=== PATIENT | female | born 1960 | race Caucasian/White ===

== ENCOUNTER 2017-10-28 06:28 | Day surgery (SDC) | payer OTHER ==
[~2017-10-28] VITALS: Ht 111.8 cm; Wt 64.8 kg
[~2017-10-28 06:28] MED LIST: BIOTIN10000 MC1 PO; CHOLESTYRAMINE L4 GM PO; COUMADIN3 MG PO; CRESTOR40 MG PO; DEPAKOTE500 MG PO; DILANTIN100 MG PO; ERGOCALCIF50000 UNIT PO; FERROUS SULFAT324 M1 PO; FOLIC ACID0.8 MG PO; IMDUR60 MG PO; INSULIN PUMP SC; LASIX40 MG PO; LO-DOSE ASPIRIN81 M1 PO; LYRICA50 MG PO; MAGNESIUM400 M1 PO; NIASPAN,SLO-N1000 MG PO; PLAVIX75 MG PO; REPATHA SU140 MG/1 M SC; TOPROL XL50 MG PO; TRICOR145 MG PO; [UNRECOGNIZED DRUG - OTHER] SC
[2017-10-28 07:03] VITALS: BP 105/56
[2017-10-28 08:09] LABS: INTER. NORMALIZED RATIO 1.1
[2017-10-28 08:12] LABS: PTT 27.6 SEC (25-37)
[2017-10-28 12:08] VITALS: BP 118/56
[2017-10-28 12:29] VITALS: BP 118/60
== END 2017-10-28 12:42 | disposition home or self-care (01) ==
LOC: SDC 06:28
PROVIDERS: Anesthesiology; Ophthalmology
DX: E11.3532 Type 2 diabetes mellitus with proliferative diabetic retinopathy with traction retinal detachment not involving the macula, left eye (principal); I10 Essential (primary) hypertension; Z79.02 Long term (current) use of antithrombotics/antiplatelets; Z79.01 Long term (current) use of anticoagulants; Z79.82 Long term (current) use of aspirin; Z87.891 Personal history of nicotine dependence; I25.2 Old myocardial infarction; Z95.1 Presence of aortocoronary bypass graft; Z95.5 Presence of coronary angioplasty implant and graft
CPT/HCPCS: 82948; 85610; 85730; J0690; J0713; J2795